=== PATIENT | female | born 1980 | race American Indian/Alaskan Native ===

== ENCOUNTER 2017-06-26 09:20 | Inpatient (IN) | payer BC ==
[2017-03-01 20:56] VITALS: BMI 36.3
[2017-06-26] MEDS ORDERED: Lactated Ringer's 1,000 ML IV SCH (09:30)
--- NOTE | 2017-06-26 09:45 | OBHP ---
Datetime: 06/26/2017 09:35 IP Adm Impression: Term, intrauterine IP Admit Plan: Admit to unit Admit Comment, IP Provider: 37 y/o @ 39.3 wks GA MATEUSZ 06/30/17 with transvere presenttaion report cramping contraction pain every 5-10 min since this morning 10/18 intensity, rolanda lof, vb, +FM Ante: AMA s/p genetic ocunseling, declined amnio, OB: P0 FENCE REPAIRMAN: hx of ovarian cyst, fibroids, Endometriosos, Pseudotumor Cerberi PMH: Obesity, Sickle cell trait, mordidly obese, PSH: Breast Reductin sugery, Eye srugery 2/2/ VALENTIN, Neurosurgery, Hernia repair, Lap Band insertion followed by removal, , Laparasocpy FHX: 10 siblines: 3 sistesr, 7 brothers, Father; Type 1 DM, Mother HTN, Brother: Type 1 DM, Non ho dkgins Lymphona SHX; negative etoh/tobaccco/drugs MEDS: PNV, Iron A/P 37 y/o @ 39.3 wks GA with transverse presentation in early labor -admit to L+D -npo, ivf -admission labs -r/b/a/i PLTCS dw patietn r/b/a/i , consnt obtained -Pre Op Antibio: Gentamyicn, Clindiamy -Abodminal prep, villanueva to gravity scds -OR/Anesthsia aware Pelvic Type - PN: Adequate Extremities - PN: Normal Abdomen - PN: Normal Back - PN: Normal Breast - PN: Normal Lungs - PN: Normal Heart - PN: Normal Thyroid - PN: Normal Neurologic - PN: Normal HEENT - PN: Normal General - PN: Normal Weight - Estimated: 3400 Presentation-Admit: Transverse FHR - Baseline A Provider: 125 Membranes, Provider: Intact Contraction Comments Provider: q 5-7 Comments, ACOG Physical Exam: Bedside US: Transvere presentation Back down Gestation - Est Wks by US: 39.3 IP Hx Assessment: The History has been Reviewed and is Current EGA AdmitDate IP: 40.0 Vital Signs Provider: Reviewed IP Chief Complaint: Uterine contractions NICHD Variability Prov Fetus A: Moderate 6-25bpm FHR Category Provider Fetus A: Category I NICHD Decel Fetus A IP Provider: None Dilatation, Provider: 2 Effacement, Provider: 50 Station, Provider: -2 Genitourinary Exam: Normal DTRs - PN: Normal
[2017-06-26] MEDS ORDERED: Sodium Citrate/Citric Acid 15 ml Sol PO ONE (10:00)
[2017-06-26 10:32] LABS: BASO # 0.1 K/uL (0.0-0.2); BASO % 0.5 % (0.0-2.0); EOS # 0.1 K/uL (0.0-0.7); EOS % 0.7 % (0.0-4.0); HEMOGLOBIN 11.8 g/dL (11.0-16.0); LYMPH # 1.9 K/uL (1.0-4.3); LYMPH % 16.5 % (20.0-40.0); MEAN CELL VOLUME 104.6 fL (81.0-99.0); MEAN CORPUSCULAR HEMOGLOBIN 35.5 pg (27.0-31.0); MEAN CORPUSCULAR HGB CONC 33.9 g/dL (33.0-37.0); MEAN PLATELET VOLUME 9.3 fL (7.2-11.7); MONO # 0.9 K/uL (0.0-0.8); NEUT # 8.8 K/uL (1.8-7.0); NEUT % 74.3 % (50.0-75.0); NRBC % 0.1 % (0.0-2.0); RBC 3.33 Mil/uL (3.80-5.20); RED CELL DISTRIBUTION WIDTH 13.9 % (11.5-14.5); WHITE BLOOD COUNT 11.8 K/uL (4.8-10.8)
[2017-06-26 10:37] LABS: ALBUMIN 3.4 g/dL (3.5-5.0); CALCIUM 8.6 mg/dl (8.6-10.4); GFR AFRICAN-AMERICAN > 60; GFR NON-AFRICAN AMERICAN > 60
[2017-06-26 10:38] LABS: ALT/SGPT 30 U/L (9-52); AST/SGOT 55 U/L (14-36); BLOOD UREA NITROGEN 7 mg/dL (7-17)
[2017-06-26] MEDS ORDERED: Oxytocin 20 units in LR 2,000 ML IV ONE (11:40)
[2017-06-26] MEDS ORDERED: Sodium Citrate/Citric Acid 15 ml Sol ONE (11:40)
--- NOTE | 2017-06-26 14:16 | OBDS ---
MATERNAL INFORMATION Provider Comments: transverse presentation back down, low vertical incision made inferior to myoma _ 5-6cm, however had to remove myoma as unable to close uterien incsion with acheiving hemostasis, live male infant agpar 9,9 weight of 6lbs 2 ounces, pedistricin present for delivery submucosal myoma _ 3cm left intact, normal tubes and ovaries grossly LABOR SUMMARY EDC: 06/26/2017 00:00 LABOR INFORMATION Group B Beta Strep: Positive STAGES OF LABOR Stage 3 hrs: 0 Stage 3 min: 2 BABY A INFORMATION Infant Delivery Date/Time: 06/26/2017 13:32 Method of Delivery: Born in Route : No : N/A Forceps: N/A Vacuum Extraction: N/A Shoulder Dystocia : No SHOULDER DYSTOCIA BABY A Delivery Date/Time: 06/26/2017 13:32 PRESENTATION/POSITION BABY A Presentation: Other PLACENTA INFORMATION BABY A Placenta Delivery Time : 06/26/2017 13:34 Placenta Method of Delivery: Manual Removal Placenta Status: Delivered SCORES BABY A Heart Rate 1 min: >100 bpm Resp Effort 1 min: Good Cry Reflex Irritability 1 min: Cough or Sneeze or Pulls Away Muscle Tone 1 min: Active Motion Color 1 min: Body Alabaster, Extremities Blue SCORE 1 MIN: 9 Heart Rate 5 min: >100 bpm Resp Effort 5 min: Good Cry Reflex Irritability 5 min: Cough or Sneeze or Pulls Away Muscle Tone 5 min: Active Motion Color 5 min: Body Alabaster, Extremities Blue SCORE 5 MIN: 9 INFANT INFORMATION BABY A Gestational Age at Delivery: 40.0 Gestational Status: Term Infant Outcome : Liveborn Infant Condition : Stable Infant Sex: Male IDENTIFICATION/MEDS BABY A ID Band Number: [id number] ID Band Location: Right Leg; Left Leg Sensor Applied: Yes Sensor Number: [id number] WEIGHT/LENGTH BABY A Birthweight (gms): 2785 Weight (lb): 6 Infant Weight (oz): 2 Infant Length Inches: 17.75 Infant Length cms: 45.1 CORD INFORMATION BABY A No. Cord Vessels: 3 Nuchal Cord : Around Neck x1, Loose Cord Blood Taken: Yes Suction: Mouth; Nose ASSESSMENT BABY A Infant Complications: None Physical Findings at Delivery: Within Normal Limits Infant Respirations: Appears Normal Die Attaching Machine Tender/ALS Called : Yes Infant Care By: DR SHANNON Transferred To: Nursery
[2017-06-26] MEDS ORDERED: DiphenhydrAMINE 50 mg/ml Inj IVP PRN (14:19)
--- NOTE | 2017-06-26 14:20 | PCM.SURG1 ---
Surgeon's Initial Post Op Note - Surgeon's Notes Surgeon: Yohana Will MD Network Operations Manager: Aris Jarvis MD Type of Anesthesia: Spinal Pre-Operative Diagnosis: Term Intrauterine , transverse presentation, advanced maternal age Operative Findings: lower uterine sement myoma ~ 5-6 cm, low vertical incision made inferior to myoma after bladder flap, unable to reproximate and close uteur with acheiving adequate hemostasis, therefore myomectomy of serosal 5-6cm myoma performed, pt infomred. normal appearing tubes and oavaries bilatearlly. Dr Aris Jarvis was nursing surgical services director and present for entire case and essential in gainign etnry, retraction, expsoure, holidgn bladder blade, helpign to perform myomectomy, help to deliver automotive parts counter assistant, help in acheivign hemostaiss, and closign all layers Post-Operative Diagnosis: same as above, leiomyomas Operation Performed: Primary low transverse cesearean section, myomectomy Specimen/Specimens Removed: placenta, leiomyoma Estimated Blood Loss: EBL {In ML}: 800 Blood Products Given: N/A Drains Used: No Drains Post-Op Condition: Good Date of Surgery/Procedure: 06/26/17 Time of Surgery/Procedure: 13:25
[2017-06-26] MEDS ORDERED: DiphenhydrAMINE 50 mg/ml Inj IVP STA (18:11)
[2017-06-26 18:33] LABS: BASO % 0.3 % (0.0-2.0); EOS # 0.1 K/uL (0.0-0.7); EOS % 0.4 % (0.0-4.0); HEMOGLOBIN 11.4 g/dL (11.0-16.0); LYMPH # 1.6 K/uL (1.0-4.3); LYMPH % 10.6 % (20.0-40.0); MEAN CELL VOLUME 104.8 fL (81.0-99.0); MEAN CORPUSCULAR HEMOGLOBIN 34.6 pg (27.0-31.0); MEAN CORPUSCULAR HGB CONC 33.1 g/dL (33.0-37.0); MONO % 6.7 % (0.0-10.0); NRBC % 0.1 % (0.0-2.0); RBC 3.28 Mil/uL (3.80-5.20); WHITE BLOOD COUNT 14.6 K/uL (4.8-10.8)
--- NOTE | 2017-06-26 23:50 | OP ---
PROCEDURE DATE: 06/26/2017 SURGEON: Yohana Will MD SILVICULTURE FORESTER: Aris Jarvis MD TYPE OF ANESTHESIA: Spinal. PREOPERATIVE DIAGNOSES: Term intrauterine , transverse presentation, and advanced maternal age. OPERATIVE FINDINGS: Lower uterine segment myoma approximately 5 to 6 cm, low vertical incision made and carried to myoma after bladder flap created and able to reapproximate and close the uterus with achieving adequate hemostasis; therefore, myomectomy of subserosal 5 to 6 cm myoma was performed that was protruding into the uterine cavity. OPERATION PERFORMED: Normal appearing tubes and ovaries grossly bilaterally. Additional submucosal 3 cm myoma noted; however, was not causing any obstruction to uterine closure and was hemostatic. Dr. Aris Jarvis, surgical instrument maker, was present for the entire case, essentially in gaining entry, retraction, exposure, holding the bladder blade, helping for myomectomy, helping to deliver with assistant attorney general help, and achieving hemostasis and closing all layers. POSTOPERATIVE DIAGNOSES: Term intrauterine , transverse presentation and advanced maternal age, fibroid uterus. OPERATION PERFORMED: Primary low transverse section and myomectomy. SPECIMENS REMOVED: Placenta and leiomyoma. ESTIMATED BLOOD LOSS: 800 mL. BLOOD PRODUCTS: None. COMPLICATIONS: None. DESCRIPTION OF PROCEDURE: The patient is a 37-year-old para 0 at 39+ weeks with transverse presentation. Risks, benefits, alternatives, and indications were discussed with the patient in regards to primary low transverse section. Consent was obtained. The patient was transferred to the operating room where she was given spinal anesthesia. Once found to be adequate, she was positioned on the operating table in dorsal supine position. The patient was then prepped and draped in usual sterile fashion. A time-out confirmed correct patient and correct procedure. A Pfannenstiel skin incision was made through incision and carried down to the underlying fascia with the Bovie. The fascia was incised in the midline. The incision was extended laterally with the Bovie. The inferior aspect of the fascial incision was grasped with Allis and Luciano clamps and underlying rectus muscle dissected off bluntly. Attention was then turned to the superior aspect of the incision in a similar fashion. It was grasped with Allis and Luciano clamps and the underlying rectus muscles were dissected off bluntly. The rectus muscle was then bluntly in the midline. The peritoneum was identified and entered into clear space . The incision was extended laterally and superiorly until there was good visualization. The lower end of the [place] was then inserted and there was myoma noted along the lower uterine segment. The vesicouterine peritoneum was incised with Metzenbaum scissors. The incision was extended laterally. A bladder flap was created digitally and the lower end of the [place] was then reinserted. A low uterine vertical incision was made and carried to the myoma and the was delivered through the excision. The baby was delivered atraumatically. Both oral and nasal passages of the baby were bulb suctioned. The nuchal cord was clamped and cut. The baby was handed off to the awaiting ferry boat captain. There was bleeding noted at the uterine incision site in close proximity to where the uterine myoma was. Hemostasis was unable to be achieved with cautery and with suture. The uterine incision was attempted to be reapproximated, but unable to achieve hemostasis at the site of the leiomyoma. The decision made to perform myomectomy was done with verbal consent provided by the patient. The myoma was then carefully removed and carefully dissected and sent to Pathology. There was good hemostasis noted as the defect was closed with a 2-0 Vicryl suture. The uterine incision was repaired with 0-Vicryl in a running continuous locked fashion. A second layer of the same suture was used to close the uterus in a running imbricated manner. There was good hemostasis at the uterine incision site. There were grossly normal tubes and ovaries bilaterally. The uterus was then returned to the abdomen and paracolic gutters were cleared of all clots and debris. The uterine incision was inspected again and the incision appeared to be hemostatic. After the paracolic gutters were cleared of all clots and debris, the peritoneum was reapproximated and closed with 2-0 chromic in a running continuous fashion. The rectus was reapproximated and closed with 2-0 chromic in an interrupted manner. The fascia was re-approximated and closed with 0 Vicryl in a running continuous fashion. The subcutaneous layer was closed with 2-0 plain in an interrupted manner. The skin was re-approximated and closed with nam. At the end of the procedure, all needles, sponge, and instrument counts were noted as correct x2. The patient tolerated the procedure well and was transferred to the recovery room in stable condition. Yohana Will MD [facility] # [id number]
[2017-06-27] MEDS ORDERED: DiphenhydrAMINE 50 mg/ml Inj IVP PRN (00:15)
--- NOTE | 2017-06-27 06:34 | OBPPN ---
Datetime: 06/27/2017 06:32 PP Pain Prov: Within normal limits PP Nausea Prov: Denies PP Flatus Prov: No PP BM Prov: No PP Breasts Prov: Normal PP Heart Prov: Normal PP Lungs Prov: Normal PP Abdomen/Uterus Prov: Normal PP Lochia Prov: Normal PP Vulva/Perineum Prov: Normal PP CVA Tenderness Prov: Normal PP Extremities Prov: Normal PP C/S Incision Prov: Normal PP Progress Prov: Normal PP Impression Prov: Normal progression PP Plan Prov: Continue present management PP Progress Note Prov: pt seen and examiend adn reports pain is contrllled. pt denies any headaches, blury visoin, ruq/epigastric pain. Pt is breast feeding and deines any fevers, chills, nause, vomiti ng, cp, sob VS see above GEN: NAD, AA Ox 3 RESP: CTAB/l CVS: RRR< +S1/S2 ABD: Soft, Appropriatly TTP over incsion ,no guarding no rebound tenderness, no rigidty, +BS Incsion C/D/I healing wlel No uterien tendneres VE; Minimal lochia non fouls semlling A/P s/p PLTCS POD #1 doing well -dc villanueva -f/u am labs -advance diet as tolerated -encourge ambuatin out of bed, breast feeding -bowel regimen Vital Signs Provider PP: Reviewed; Within Normal Limits
[2017-06-27 08:03] LABS: BASO # 0.1 K/uL (0.0-0.2); BASO % 0.6 % (0.0-2.0); EOS % 0.3 % (0.0-4.0); HEMOGLOBIN 10.2 g/dL (11.0-16.0); LYMPH # 1.1 K/uL (1.0-4.3); LYMPH % 6.1 % (20.0-40.0); MEAN CELL VOLUME 104.8 fL (81.0-99.0); MEAN CORPUSCULAR HEMOGLOBIN 35.8 pg (27.0-31.0); MEAN CORPUSCULAR HGB CONC 34.2 g/dL (33.0-37.0); MEAN PLATELET VOLUME 9.1 fL (7.2-11.7); MONO # 1.6 K/uL (0.0-0.8); MONO % 9.1 % (0.0-10.0); NEUT # 15.3 K/uL (1.8-7.0); NEUT % 83.9 % (50.0-75.0); PLATELET COUNT 177 K/uL (130-400); RBC 2.85 Mil/uL (3.80-5.20); RED CELL DISTRIBUTION WIDTH 14.3 % (11.5-14.5); WHITE BLOOD COUNT 18.2 K/uL (4.8-10.8)
[2017-06-27 08:16] LABS: ALB/GLOB RATIO 0.9 (1.0-2.1); ALBUMIN 2.8 g/dL (3.5-5.0); ALT/SGPT 32 U/L (9-52); AST/SGOT 44 U/L (14-36); BLOOD UREA NITROGEN 5 mg/dL (7-17); CALCIUM 8.4 mg/dl (8.6-10.4); GFR AFRICAN-AMERICAN > 60; GFR NON-AFRICAN AMERICAN > 60
[2017-06-27 09:35] LABS: ANISOCYTOSIS SLIGHT; HYPOCHROMIC SLIGHT; LYMPHOCYTE 6 % (20-40); MONOCYTE 9 % (0-10); NEUTROPHIL 85 % (50-75); PLATELET ESTIMATE NORMAL (NORMAL); POIKILOCYTOSIS SLIGHT; TOTAL CELLS COUNTED 100
[2017-06-27 09:36] LABS: POLYCHROMIC SLIGHT
[2017-06-27] MEDS: Prenatal Multivit/Folic Acid/Iron Tab PO SCH (09:44)
[2017-06-27] MEDS ORDERED: Bisacodyl 5mg EC Tab PO ONE (14:28)
[2017-06-27] MEDS: Simethicone 80 mg Chewtab PO SCH ×2 (17:34→22:13)
[2017-06-28] MEDS: Oxycodone/Acetaminophen 5/325 mg Tab PO PRN ×3 (04:40→19:59)
[2017-06-28 09:10] LABS: BASO # 0.1 K/uL (0.0-0.2); BASO % 0.3 % (0.0-2.0); EOS # 0.1 K/uL (0.0-0.7); EOS % 0.6 % (0.0-4.0); HEMOGLOBIN 9.6 g/dL (11.0-16.0); LYMPH # 1.5 K/uL (1.0-4.3); LYMPH % 8.2 % (20.0-40.0); MEAN CELL VOLUME 106.3 fL (81.0-99.0); MEAN CORPUSCULAR HEMOGLOBIN 35.3 pg (27.0-31.0); MEAN CORPUSCULAR HGB CONC 33.2 g/dL (33.0-37.0); MEAN PLATELET VOLUME 8.9 fL (7.2-11.7); MONO # 1.5 K/uL (0.0-0.8); MONO % 8.3 % (0.0-10.0); NEUT # 15.4 K/uL (1.8-7.0); NEUT % 82.6 % (50.0-75.0); PLATELET COUNT 199 K/uL (130-400); RBC 2.72 Mil/uL (3.80-5.20); RED CELL DISTRIBUTION WIDTH 14.6 % (11.5-14.5); WHITE BLOOD COUNT 18.6 K/uL (4.8-10.8)
[2017-06-28] MEDS: Prenatal Multivit/Folic Acid/Iron Tab PO SCH (09:32)
[2017-06-28] MEDS: Simethicone 80 mg Chewtab PO SCH ×4 (09:32→21:28)
[2017-06-28 10:04] LABS: ANISOCYTOSIS SLIGHT; BANDS 1 % (0-2); BASOPHIL 1 % (0-2); EOSINOPHIL 1 % (0-4); LYMPHOCYTE 9 % (20-40); MONOCYTE 8 % (0-10); NEUTROPHIL 80 % (50-75); PLATELET ESTIMATE NORMAL (NORMAL); TOTAL CELLS COUNTED 100
[2017-06-28 10:05] LABS: HYPOCHROMIC SLIGHT; POIKILOCYTOSIS SLIGHT; TEARDROP CELLS SLIGHT
[2017-06-28] MEDS ORDERED: ceFAZolin IV 2 gm in Dextrose 2 GM/50 ML BAG IVPB SCH (10:15)
--- NOTE | 2017-06-28 16:37 | OBPPN ---
Datetime: 06/28/2017 16:35 PP Pain Prov: Within normal limits PP Nausea Prov: Denies PP Flatus Prov: Yes PP BM Prov: No PP Breasts Prov: Normal PP Heart Prov: Normal PP Lungs Prov: Normal PP Abdomen/Uterus Prov: Normal PP Lochia Prov: Normal PP Vulva/Perineum Prov: Normal PP CVA Tenderness Prov: Normal PP Extremities Prov: Normal PP C/S Incision Prov: Normal PP Progress Prov: Normal PP Impression Prov: Normal progression PP Plan Prov: Continue present management PP Progress Note Prov: pt seen and examiend adn reports pain is contrllled. pt denies any headaches, blury visoin, ruq/epigastric pain. Pt is breast feeding and deines any fevers, chills, nause, vomiti ng, cp, sob VS see above GEN: NAD, AA Ox 3 RESP: CTAB/l CVS: RRR< +S1/S2 ABD: Soft, Appropriatly TTP over incsion ,no guarding no rebound tenderness, no rigidty, +BS Incsion C/D/I healing wlel No uterien tendneres VE; Minimal lochia non fouls semlling A/P s/p PLTCS POD #2 doing well -ecnourab breast feedign and ambiaotn -pian mangnet IP PP Procedures: None Vital Signs Provider PP: Reviewed; Within Normal Limits
[2017-06-29] MEDS: Oxycodone/Acetaminophen 5/325 mg Tab PO PRN ×3 (01:20→13:37)
--- NOTE | 2017-06-29 07:47 | OBPPN ---
Datetime: 06/29/2017 07:46 PP Pain Prov: Within normal limits PP Nausea Prov: Denies PP Flatus Prov: Yes PP BM Prov: No PP Breasts Prov: Normal PP Heart Prov: Normal PP Lungs Prov: Normal PP Abdomen/Uterus Prov: Normal PP Lochia Prov: Normal PP Vulva/Perineum Prov: Normal PP CVA Tenderness Prov: Normal PP Extremities Prov: Normal PP Impression Prov: Normal progression PP Plan Prov: Continue present management PP Progress Note Prov: pt seen and examiend adn reports pain is contrllled. pt denies any headaches, blury visoin, ruq/epigastric pain. Pt is breast feeding and deines any fevers, chills, nause, vomiti ng, cp, sob VS see above GEN: NAD, AA Ox 3 RESP: CTAB/l CVS: RRR< +S1/S2 ABD: Soft, Appropriatly TTP over incsion ,no guarding no rebound tenderness, no rigidty, +BS Incsion C/D/I healing wlel No uterien tendneres fund u belwo umbilucs VE; Minimal lochia non fouls semlling A/P s/p PLTCS POD #3 doing well dc home rot 1 weke precuiont givne staple removal 1 week IP PP Procedures: None Vital Signs Provider PP: Reviewed; Within Normal Limits
--- NOTE | 2017-06-29 07:50 | OBDCSUM ---
Datetime: 06/29/2017 07:47 Discharged to, Provider: Home Follow up at, Provider: Dr Will Disch Instr Activity: Normal activity Disch Instr Diet: Regular Discharge Instructions, Provider: Routine instructions given Discharge Diagnosis, Provider: Term Delivered Discharge Time: 06/29/2017 07:47 Follow up in weeks, Provider: 1 week staple removal Disch Referrals: None Contraception discussed, Prov: Yes Disch Activity Restrictions: No sexual activity; Nothing in vagina - [place], tampons, douche Discharge Comment, Provider: fever, pain, heavy bleeidng more than 2 pads / hour call md and go to e r Contraception after Delivery: Not Planning to Use
[2017-06-29] MEDS: Simethicone 80 mg Chewtab PO SCH ×4 (09:08→21:05)
[2017-06-29] MEDS: Prenatal Multivit/Folic Acid/Iron Tab PO SCH (09:08)
[2017-06-29] MEDS ORDERED: Oxycodone/Acetaminophen 5/325 mg Tab PO PRN ×2 (17:54→17:55)
--- NOTE | 2017-06-29 21:40 | CARD ---
APPROVED REPORT EKG Measurement Heart [id number] <Conclusion> Normal sinus rhythm Normal ECG
[2017-06-30] MEDS: Simethicone 80 mg Chewtab PO SCH ×2 (09:41→13:49)
[2017-06-30] MEDS: Prenatal Multivit/Folic Acid/Iron Tab PO SCH (09:41)
--- NOTE | 2017-06-30 12:02 | OBDCSUM ---
Datetime: 06/30/2017 11:44 Discharged to, Provider: Home Follow up at, Provider: Dr. Will Disch Instr Activity: Normal activity Disch Instr Diet: Regular Discharge Instructions, Provider: Routine instructions given Discharge Diagnosis, Provider: Term Delivered Discharge Time: 06/30/2017 12:00 Follow up in weeks, Provider: 07/04/17 Disch Referrals: None Contraception discussed, Prov: No Disch Activity Restrictions: No exercising; No lifting; No sexual activity; Nothing in vagina - Inte rcourse, tampons, douche Discharge Comment, Provider: Patient has been seen and examined. No overnight events reported. She denies any fevers, chills, chest pain, shortness of breath, nausea, vomiting, or any abdominal pain. Patient reports passing gas, however has yet to have a bowel movement. She has been ambulating with n o complaints. Patient is ; supplementing with formula. Vitals: BP-112/79, HR-85, Temp- 97.8 Labs: H/H-9.6/28.9 Gen: AAOx3, NAD Cardio: +S1, S2, no murmurs Pulm: CTA Abdomen: Non-Tender, Normoactive Bowel Sounds, incision C/D/I; nam intact. Fundus firm, mobile , at level of the umbilicus. Minimal lochia Ext: Absent lower extremity edema A/P 37 year old s/p with myomectomy POD #4 -Afebrile/Stable -Pain Control: Percocet/Ibuprofen -Post Op H/H stable -Encourage Ambulation and Hydration -Encourage Breast Feeding -Continue routine care. -Patient to follow up with Dr. Will 07/04/17 for staple removal/ post op check Patient seen and discussed with Attending Jorge Alberto Ann, PGY1 Attending Note (covering for Dr. Will): patient seen and evluated with the Resident; I agree with the above. Patient counseled on iron supplementation and encouraged to continue with other measures to improve her H/H. Patient is otherwise clinically stable. Will disharge home as above. Discharge Diagnosis Prov Other: Status post primary section Leiomyomatous uteri Status post incidental myomectomy Sickle trait Chronic anemia Datetime: 06/29/2017 07:47 Discharge Diet restrict Prov: none Discharge Time: 06/30/2017 11:30
--- NOTE | 2017-06-30 12:02 | OBPPN ---
Datetime: 06/30/2017 11:40 PP Pain Prov: Within normal limits PP Nausea Prov: Denies PP Flatus Prov: Yes PP BM Prov: No PP Heart Prov: Normal PP Lungs Prov: Normal PP Abdomen/Uterus Prov: Normal PP Impression Prov: Normal progression PP Plan Prov: Discharge PP Progress Note Prov: Patient has been seen and examined. No overnight events reported. She denies any fevers, chills, chest pain, shortness of breath, nausea, vomiting, or any abdominal pain. Ricardo sherwood reports passing gas, however has yet to have a bowel movement. She has been ambulating only to the bathroom but is aware that she must ambulate in the hallways today. Patient is . Vitals: BP-112/79, HR-85, Temp- 97.8 Labs: H/H-9.6/28.9 Gen: AAOx3, NAD Cardio: +S1, S2, no murmurs Pulm: CTA Abdomen: Non-Tender, Normoactive Bowel Sounds, Incision C/D/I; nam intact. Fundus firm, mobile , at umbilicus Ext: Absent lower extremity edema A/P 37 year old s/p with myomectomy, POD #4 -Afebrile/Stable -Pain Control: Percocet/Ibuprofen -Post Op H/H stable -Encourage Ambulation and Hydration -Encourage Breast Feeding -Patient to follow up with Dr. Will 07/04/17 for staple removal/ post op care Patient seen and discussed with Attending Jorge Alberto Ann, PGY1 Attending Note (covering for Dr. Will): patient seen and evaluated with Resident. I agree with kumar sultana above. Patient counseled on iron supplementation, in addition to observing other measures to impro ve her H/H. Patient otherwise clinically stable. Will discharge home today Vital Signs Provider PP: Reviewed; Within Normal Limits
[2017-06-30 19:22] VITALS: BP 98/68; PULSE 88; RESP 18; TEMP 98.4; O2SAT 100
== END 2017-06-30 15:15 | disposition home or self-care (01) | DRG 766 ==
LOC: C.EROB 09:20 → C.4D 09:23 → C.4M 17:05
PROVIDERS: ADMIT Obstetrics & Gynecology; ATTEND Obstetrics & Gynecology
PROC: 10D00Z1 Extraction of Products of Conception, Low, Open Approach (ICD-10-PCS; principal; 2017-06-26)
PROC: 0UB90ZZ Excision of Uterus, Open Approach (ICD-10-PCS; 2017-06-26)
DX: O32.2XX0 Maternal care for transverse and oblique lie, not applicable or unspecified (principal); O34.13 Maternal care for benign tumor of corpus uteri, third trimester; D25.2 Subserosal leiomyoma of uterus; D25.0 Submucous leiomyoma of uterus; O99.02 Anemia complicating childbirth; D57.3 Sickle-cell trait; O69.81X0 Labor and delivery complicated by cord around neck, without compression, not applicable or unspecified; O99.214 Obesity complicating childbirth; E66.9 Obesity, unspecified; Z68.39 Body mass index [BMI] 39.0-39.9, adult; Z3A.39 39 weeks gestation of pregnancy; Z37.0 Single live birth

== ENCOUNTER 2017-10-17 07:17 | Day surgery (SDC) | payer BC ==
[2017-10-13 13:34] VITALS: BMI 37.9
[2017-10-17] MEDS ORDERED: Propofol 10 mg/ml Inj (20 ML) ONE (09:06)
[2017-10-17] MEDS ORDERED: Midazolam 2 MG/2 ML VIAL ONE (09:06)
[2017-10-17] MEDS ORDERED: Clindamycin 600mg/50ml NS 600 MG/50 ML BAG IVPB ONE (09:12)
[2017-10-17] MEDS ORDERED: Lidocaine/Epinephrine 1% 1:100000 10 ML IJ ONE (09:40)
--- NOTE | 2017-10-17 10:05 | PCM.SURG1 ---
Surgeon's Initial Post Op Note - Surgeon's Notes Surgeon: Yohana Will MD Supervisor Sewing Department: none Type of Anesthesia: General LMA Pre-Operative Diagnosis: Abnormal uteirne bleeding, submucosal myoma, right batholin cyst Operative Findings: 10 week sizse anteveratd utuers, bilateal ostia visualized, submcos myoma along right lateral wall resectred with myosure device. fluid deficits 160cc. right bartholin cyst removed and masupized. Post-Operative Diagnosis: same same as above Operation Performed: Hysterosocpic myomectomy, dilation and currettage, barthlin cyst masupilzation Specimen/Specimens Removed: endocervical currettings, endometrial currettings, submucosal myoma, bartholin cyst Estimated Blood Loss: EBL {In ML}: 10 Blood Products Given: N/A Drains Used: No Drains Post-Op Condition: Good Date of Surgery/Procedure: 10/17/17 Time of Surgery/Procedure: 09:00
[2017-10-17] MEDS ORDERED: HYDROmorphone 0.5 mg/0.5 ml ISec IVP PRN (10:13)
[2017-10-17 10:44] VITALS: O2SAT 100
[2017-10-17] MEDS ORDERED: Lactated Ringer's 1,000 ML IV ONE (11:00)
[2017-10-17 11:27] VITALS: RESP 16
[2017-10-17 12:50] VITALS: BP 134/79; PULSE 75; TEMP 97.9
--- NOTE | 2017-10-17 21:17 | OP ---
PROCEDURE DATE: 10/17/2017 SURGEON: Yohana Will MD DIFFUSER OPERATOR: None. TYPE OF ANESTHESIA: General LMA. PREOPERATIVE DIAGNOSES: Abnormal uterine bleeding, submucosal myoma, right Bartholin cyst. OPERATIVE FINDINGS: A 10-week size anteverted uterus, bilateral ostia visualized, submucosal myoma noted along right uterine wall resected with MyoSure device. FLUID DEFICIT: 150 mL. Right Bartholin cyst removed and marsupialized. POSTOPERATIVE DIAGNOSES: Abnormal uterine bleeding, submucosal myoma, right Bartholin cyst. OPERATION PERFORMED: Hysteroscopic myomectomy, dilation and curettage, Bartholin cyst marsupialization and cyst removed. SPECIMEN: Endocervical curettings, endometrial curettings, submucosal myoma, and Bartholin cyst. ESTIMATED BLOOD LOSS: 10 mL. BLOOD PRODUCTS: None. COMPLICATIONS: None. DESCRIPTION OF PROCEDURE: The patient was taken to the operating room where she was given general anesthesia. Once it was found to be adequate, she was placed on the operating table in a dorsal supine position with the legs supported using stirrups. The patient was then prepped and draped in the usual sterile fashion. A time-out confirmed correct patient and correct procedure. Bimanual exam was performed with the above-mentioned findings. A red rubber catheter was inserted into the urethra to drain the bladder. Following this, a Varela retractor was placed on the anterior and posterior fornix of the vagina. The cervix was adequately visualized. A single-tooth tenaculum was placed in the anterior lip of the cervix. Endocervical curettings were obtained with a [place] hospital[facility] curette and sent to Pathology on [facility]. The uterus was then sounded to 8 cm. Following this, the cervix was sequentially dilated to allow for introduction of a 5 mm hysteroscope under direct visualization using normal saline as the distention media. Bilateral ostia were visualized. The MyoSure device was then inserted under direct visualization and the submucosal myoma was resected carefully along right lateral wall. All instruments were removed. A gentle curettage was done 360 degrees. The specimen was sent to pathology, endometrial curettings. The single tooth tenaculum was removed. There was good hemostasis noted. Attention was then turned to the Bartholin gland which was initially outlined using a marking pen. Lidocaine with epinephrine was administered to the patient following this. A scalpel was then used to incise the elliptical shaped area dissected down to the Bartholin gland. The Bartholin gland was noted to be 4 cm. Following this, with the #11 blade, incision was made in the mucocutaneous structure approximately 1 cm. This allowed the purulent material to exit the cavity. Wound culture was obtained and sent off. Bartholin gland cavity was then copiously irrigated with sterile saline. Once this was performed, marsupialization was accomplished using a 3-0 Vicryl continuous stitch. The stitch was continuous of an interlocking fashion. At the conclusion of the marsupialization, the site was hemostatic. There was good hemostasis noted. All instruments removed. At the end of the procedure, all needle, sponge, and instrument counts were noted and correct x2. The patient tolerated the procedure well and sent to the recovery room in stable condition. Yohana Will MD
== END 2017-10-17 12:55 | disposition home or self-care (01) ==
LOC: C.SDS 07:17
PROVIDERS: ATTEND Obstetrics & Gynecology
DX: D25.0 Submucous leiomyoma of uterus (principal); N75.0 Cyst of Bartholin's gland
CPT/HCPCS: 56440; 58561; 87070; 88305; J1100; J1885; J2250; J2405; J2704; J3010; J7120